=== PATIENT | female | born 1985 | race Native Hawaiian/Other Pacific Islander ===

== ENCOUNTER 2018-10-08 12:36 | Emergency (ER) | payer SELFPAY ==
[~2018-10-08] VITALS: Ht 162.6 cm; Wt 117.9 kg
[2018-10-08] MEDS ORDERED: BENADRYL25 MG ORAL (12:42)
--- NOTE | 2018-10-08 12:45 | NUR ---
ED Nurse Note: PT WALKED IN TO ER TODAY FROM HOME. AOX4. PT C/O NONRADIATING LOWER BACK PAIN X 4 DAYS AGO. PT DENIES ANY RECENT INJURY OR TRAUMA. PT DENIES NUMBNESS OR TINGLING. FULL ROM OF ALL EXTREMITIES. CIRCULATION AND SENSATION INTACT. GAIT STEADY.
[2018-10-08 12:47] VITALS: BP 132/78
--- NOTE | 2018-10-08 12:57 | Emergency Room Report ---
History of Present Illness General Chief Complaint: Back Pain-No Injury Source: Patient Present Illness HPI 33-year-old female with no significant past medical history was morbidly obese here complaining of 4 days of sudden onset of low back pain without injury. Denies urinary symptoms, flank pain, fever and chills, nausea vomiting. Denies lifting heavy objects. Patient reports that she has to walk a lot every day to go to her class. Has been taking [id number] ibuprofen with minimal relief. Patient is rating the pain 10 out of 10 without radiation denying tingling and numbness. Denies saddle paresthesia, urinary and bowel incontinence. Denies chest pain, shortness of breath, palpitation, abdominal pain, and all other associated symptoms Allergies: Coded Allergies: No Known Allergies (Unverified , 10/08/18) Patient History Past Medical History: see triage record Past Surgical History: unable to obtain Pertinent Family History: none Last Menstrual Period: 10/07/2018 Now: No Immunizations: UTD Reviewed Nursing Documentation: PMH: Agreed; PSxH: Agreed Nursing Documentation-PMH Past Medical History: No Stated History Review of Systems All Other Systems: negative except mentioned in HPI Physical Exam Vital Signs Date Time Temp Pulse Resp B/P (MAP) Pulse Ox O2 Delivery O2 Flow Rate FiO2 10/08/18 12:39 98.4 98 16 136/82 (100) 98 Room Air Sp02 EP Interpretation: reviewed, normal General Appearance: well appearing, no apparent distress, alert, obese Eyes: bilateral eye normal inspection, bilateral eye PERRL ENT: normal ENT inspection, hearing grossly normal, normal pharynx Neck: normal inspection, full range of motion, supple Respiratory: normal inspection, chest non-tender, lungs clear, normal breath sounds, no rhonchi Cardiovascular #1: normal inspection, regular rate, rhythm, no edema, no murmur , normal capillary refill Gastrointestinal: normal inspection, non tender, soft Rectal: deferred Genitourinary: no CVA tenderness Musculoskeletal: normal inspection, back normal, digits/nails normal, gait/ station normal, normal range of motion, no calf tenderness Neurologic: normal inspection, alert, oriented x3, responsive, government auditor III-XII nml as tested Psychiatric: normal inspection, judgement/insight normal Skin: normal inspection, no rash, warm/dry, well hydrated Lymphatic: normal inspection, no adenopathy Medical Decision Making PA Attestation All my diagnosis and treatment plans were reviewed ad discussed with my supervising physician Dr. Roy Diagnostic Impression: Primary Impression: Lumbar spine strain ER Course 33-year-old female with no significant past medical history was morbidly obese here complaining of 4 days of sudden onset of low back pain without injury. Denies urinary symptoms, flank pain, fever and chills, nausea vomiting. Denies lifting heavy objects. Patient reports that she has to walk a lot every day to go to her class. Has been taking [id number]-[id number] ibuprofen with minimal relief. Patient is rating the pain 10 out of 10 without radiation denying tingling and numbness. Denies saddle paresthesia, urinary and bowel incontinence. Denies chest pain, shortness of breath, palpitation, abdominal pain, and all other associated symptoms Ddx considered but are not limited to : Lumbar spine sprain, fracture, strain, contusion Vital signs: are WNL, pt. is afebrile H&PE are most consistent with: Ddx considered but are not limited to: Lumbar spine strain, lumbar spine fracture, lumbar spine sprian Vital signs: are WNL, pt. is afebrile H&PE are most consistent with: Ddx considered but are not limited to: Lumbar spine strain, lumbar spine fracture, l Vital signs: are WNL, pt. is afebrile H&PE are most consistent with: lumbar spine strain ORDERS: Robaxin, naproxen ED INTERVENTIONS: None required at this time. DISCHARGE: At this time pt. is stable for d/c to home. Will provide printed patient care instructions, and any necessary prescriptions. Care plan and follow up instructions have been discussed with the patient prior to discharge. At this point no x-ray is necessary as there was no fall or injury patient advised to lose weight and follow with a primary care provider alternate between icing and heating the affected area avoid lifting heavy objects Last Vital Signs Date Time Temp Pulse Resp B/P (MAP) Pulse Ox O2 Delivery O2 Flow Rate FiO2 10/08/18 12:47 98.2 92 17 132/78 99 Room Air Disposition: HOME, SELF-CARE Condition: Stable Scripts Naproxen* (NAPROXEN*) 500 Mg Tablet 500 MG ORAL TWICE A DAY, #20 TAB Prov: Davie Amin 10/08/18 Methocarbamol* (ROBAXIN*) 500 Mg Tablet 500 MG PO TID, #21 TAB 0 Refills Prov: Davie Amin 10/08/18 Referrals: NOT CHOSEN IPA/MD,REFERRING (PCP) Patient Instructions: Lumbosacral Strain Additional Instructions: Take medication as directed alternate between icing and heating the affected area avoid strenuous physical activity weight loss highly advised as you are putting excess pressure on your lower back. Avoid lifting heavy objects. Follow-up with your primary care provider Davie Amin Oct 08, 2018 12:57
[2018-10-08] MEDS ORDERED: NAPROXEN500 M2 ORAL (12:58)
[2018-10-08] MEDS ORDERED: ROBAXIN500 MG PO (12:58)
[2018-10-08 13:01] VITALS: BP 134/80
--- NOTE | 2018-10-08 13:01 | NUR ---
ED Nurse Note: PT LAYING PEACEFULLY IN BED IN NAD. AOX4. PRESCRIPTION AND DISCHARGE PAPERWORK EXPLAINED TO PT. PT VERBALIZES UNDERSTANDING AND ALL QUESTIONS ANSWERED. PRESCRIPTION AND DISCHARGE PAPERWORK GIVEN TO PT AND ID WRISTBAND REMOVED. PT WALKED OUT OF ER WITH STEADY GAIT AND ALL BELONGINGS.
== END 2018-10-08 13:02 | disposition home or self-care (01) ==
LOC: EMR 12:52
DX: S39.012A Strain of muscle, fascia and tendon of lower back, initial encounter (principal); X58.XXXA Exposure to other specified factors, initial encounter; Y92.9 Unspecified place or not applicable; E66.9 Obesity, unspecified; Z68.41 Body mass index [BMI] 40.0-44.9, adult
CPT/HCPCS: 99282